=== PATIENT | male | born 2000 | race Caucasian/White ===

== ENCOUNTER 2020-01-12 18:44 | Emergency (ER) | payer MEDICAID, OTHER ==
[~2020-01-12] VITALS: Ht 180.3 cm; Wt 63.3 kg
[~2020-01-12 18:44] MED LIST: PRED20TA PO
[2020-01-12] MEDS ORDERED: PENI500T2 PO (20:25)
[2020-01-12] MEDS ORDERED: dexamethasone sod phosphate 10mg/ml inj PO STA ×2 (20:26→20:41)
[2020-01-12 20:48] VITALS: BP 125/79
== END 2020-01-12 20:53 | disposition home or self-care (01) ==
LOC: ER 18:45
DX: J03.00 Acute streptococcal tonsillitis, unspecified (principal); R50.9 Fever, unspecified; Z79.899 Other long term (current) drug therapy
CPT/HCPCS: 99283; J1100

== ENCOUNTER 2020-01-18 14:27 | Emergency (ER) | payer MEDICAID, OTHER ==
[~2020-01-18] VITALS: Ht 180.3 cm; Wt 63.6 kg
[~2020-01-18 14:27] MED LIST changes: +PENI500T2 PO
[2020-01-18] MEDS ORDERED: ibuprofen 200mg tablet PO ONE (15:55)
[2020-01-18] MEDS ORDERED: LIDOcaine Viscous 15ml cup MM STA (16:02)
[2020-01-18] MEDS ORDERED: clindamycin 150mg capsule PO ONE (16:05)
--- NOTE | 2020-01-18 16:14 | NUR ---
gave pt meds, awaiting d/c paperwork
[2020-01-18] MEDS ORDERED: CLIN150C2 PO (16:16)
[2020-01-18] MEDS ORDERED: L. R1CAP4 PO (16:16)
[2020-01-18 16:24] VITALS: BP 126/75
== END 2020-01-18 16:25 | disposition home or self-care (01) ==
LOC: ER 14:28
DX: J02.9 Acute pharyngitis, unspecified (principal); Z79.899 Other long term (current) drug therapy
CPT/HCPCS: 99283; 99284

== ENCOUNTER 2020-02-03 10:03 | Emergency (ER) | payer MEDICAID, OTHER ==
[~2020-02-03] VITALS: Ht 180.3 cm; Wt 61.7 kg
[~2020-02-03 10:03] MED LIST changes: +L. R1CAP4 PO; -PENI500T2 PO
[2020-02-03] MEDS ORDERED: ketorolac tromethamine 15mg/ml inj. IM ONE (10:40)
[2020-02-03 11:53] VITALS: BP 114/81
== END 2020-02-03 11:54 | disposition home or self-care (01) ==
LOC: ER 10:04
DX: S13.4XXA Sprain of ligaments of cervical spine, initial encounter (principal); M25.512 Pain in left shoulder; Z79.899 Other long term (current) drug therapy; V89.2XXA Person injured in unspecified motor-vehicle accident, traffic, initial encounter; Y93.89 Activity, other specified; Y92.89 Other specified places as the place of occurrence of the external cause; Y99.8 Other external cause status
CPT/HCPCS: 72125; 96372; 99284; J1885

== ENCOUNTER 2021-01-15 19:23 | Emergency (ER) | payer BC, OTHER ==
[~2021-01-15] VITALS: Ht 182.9 cm; Wt 58.7 kg
[2021-01-15 19:45] VITALS: BP 110/72
== END 2021-01-15 21:10 | disposition home or self-care (01) ==
LOC: ER 19:23
DX: S90.455A Superficial foreign body, left lesser toe(s), initial encounter (principal); M79.672 Pain in left foot; Z79.899 Other long term (current) drug therapy; X58.XXXA Exposure to other specified factors, initial encounter; Y93.89 Activity, other specified; Y92.89 Other specified places as the place of occurrence of the external cause; Y99.8 Other external cause status
CPT/HCPCS: 99284

== ENCOUNTER 2024-02-25 19:04 | Emergency (ER) | payer MEDICAID, OTHER ==
[~2024-02-25] VITALS: Ht 182.9 cm; Wt 59.1 kg
[2024-02-25] MEDS ORDERED: AMOX-117 PO (19:42)
[2024-02-25 19:52] VITALS: BP 124/70; PULSE 74; RESP 18; TEMP 98.5; O2SAT 98
== END 2024-02-25 19:54 | disposition home or self-care (01) ==
LOC: ER 19:05
DX: K04.7 Periapical abscess without sinus (principal); Z79.899 Other long term (current) drug therapy
CPT/HCPCS: 99283